=== PATIENT | male | born 1955 | race Caucasian/White ===

== ENCOUNTER 2022-04-09 08:00 | Day surgery (SDC) | payer MEDICARE, MEDICAID ==
[~2022-04-09] VITALS: Ht 162.6 cm; Wt 75.5 kg
[2022-04-09] VITALS (11 sets, daily range): BP systolic 128–184; BP diastolic 59–84
[2022-04-09] MEDS ORDERED: LORazepam 0.5 MG tablet PO PRN (08:30)
[2022-04-09] MEDS ORDERED: normal saline 1,000 ML IV SCH (08:30)
[2022-04-09] MEDS ORDERED: diphenhydrAMINE 25mg capsule PO PRN (08:30)
[2022-04-09] MEDS ORDERED: nitroGLYCERIN 0.4mg SUBLingual tab SL PRN ×2 (08:30→11:55)
[2022-04-09] MEDS ORDERED: CYCL-394 PO (08:52)
[2022-04-09] MEDS ORDERED: CLON0.1T2 PO (08:52)
[2022-04-09] MEDS ORDERED: CHOL20004 PO (08:52)
[2022-04-09] MEDS ORDERED: HYDR25TA5 PO (08:52)
[2022-04-09] MEDS ORDERED: CELE-193 PO (08:52)
[2022-04-09] MEDS ORDERED: SERT25TA PO (08:52)
[2022-04-09] MEDS ORDERED: FLO0.4C PO (08:52)
[2022-04-09] MEDS ORDERED: LOSA25TA96 PO (08:52)
[2022-04-09] MEDS ORDERED: HYDR-3972 PO (08:52)
[2022-04-09] MEDS ORDERED: DILT300C34 PO (08:52)
[2022-04-09] MEDS ORDERED: HYDR50TA65 PO (08:52)
[2022-04-09] MEDS ORDERED: GABA800T11 PO (08:52)
[2022-04-09] MEDS ORDERED: POTA10CA44 PO (08:52)
[2022-04-09] MEDS ORDERED: LOP12.5T PO (08:52)
[2022-04-09] MEDS ORDERED: Biotin (09:11)
[2022-04-09] MEDS ORDERED: GINKO (09:11)
[2022-04-09] MEDS ORDERED: Vitamin C (09:11)
[2022-04-09] MEDS ORDERED: Vitamin E (09:11)
[2022-04-09] MEDS ORDERED: lutein (09:11)
[2022-04-09] MEDS ORDERED: Tumeric (09:11)
[2022-04-09 09:54] LABS: HIV ANTIBODY 1&2 RAPID NON-REACTIVE (Neg)
[2022-04-09] MEDS ORDERED: midazolam 1 mg/ML 2ml injection ONE ×2 (10:20→10:33)
[2022-04-09] MEDS ORDERED: fentaNYL/PF 50MCG/1 ML 2ML syringe ONE ×2 (10:20→10:33)
[2022-04-09] MEDS ORDERED: iohexol 350MG/ML 100ml bottle IV ONE (10:20)
[2022-04-09] MEDS ORDERED: LIDOcaine 1% 30ml preserv. free vial ONE ×2 (10:20→10:34)
[2022-04-09] MEDS ORDERED: hydrALAZINE 20mg/ml inj. IV ONE (11:10)
[2022-04-09] MEDS ORDERED: HYDROcodone/acetaminophen 5mg/325mg tablet PO PRN (11:55)
[2022-04-09] MEDS ORDERED: normal saline 1000ml 1,000 ML IV SCH (11:55)
[2022-04-09] MEDS ORDERED: ondansetron/PF 4mg/2ml inj IV PRN (11:55)
[2022-04-09] MEDS ORDERED: HYDROcodone/acetaminophen 10/325mg tab PO PRN (11:55)
[2022-04-09] MEDS ORDERED: proCHLORperazine 10 MG/2 ml inj IV PRN (11:55)
[2022-04-09] MEDS ORDERED: OXAZEpam 15mg capsule PO PRN (11:55)
[2022-04-10 10:21] LABS: TRIIODOTHYRONINE (T3) 120 ng/dL (71-180)
[2022-04-10 16:58] LABS: HBSAG SCREEN Negative (Negative); HEP A AB, IGM Negative (Negative)
[2022-04-17 10:17] LABS: HEPATITIS C ANTIBODY Negative
== END 2022-04-09 16:10 | disposition home or self-care (01) ==
LOC: SSTAY O 08:00
PROVIDERS: ATTEND Internal Medicine Cardiovascular Disease
DX: R94.39 Abnormal result of other cardiovascular function study (principal); I25.10 Atherosclerotic heart disease of native coronary artery without angina pectoris; I10 Essential (primary) hypertension; E78.5 Hyperlipidemia, unspecified; I35.0 Nonrheumatic aortic (valve) stenosis; Z79.899 Other long term (current) drug therapy; Z79.01 Long term (current) use of anticoagulants; Z98.890 Other specified postprocedural states; Z87.891 Personal history of nicotine dependence; R10.13 Epigastric pain; D61.818 Other pancytopenia; R75 Inconclusive laboratory evidence of human immunodeficiency virus [HIV]
CPT/HCPCS: 36415; 80074; 84439; 84443; 84480; 86703; 93005; 93458; 99152; C1760; C1769; J0360; J1644; J2250; J3010; J3490; J7030; Q0163; Q9967; A4620; A6258